=== PATIENT | female | born 2000 | race Caucasian/White ===

== ENCOUNTER 2025-07-09 13:30 | Emergency (ER) | payer BC ==
[~2025-07-09 13:30] MED LIST: Iopamidol-370 76% 500 ML MDV (1 ML CHARGE) ONE
[2025-07-09] MEDS ORDERED: Acetaminophen 500 MG TAB ONE (14:16)
[2025-07-09] MEDS ORDERED: HYDROcodone/Acetaminophen 5/325 mg Tablet ONE (14:19)
[2025-07-09] MEDS ORDERED: Ketorolac Tromethamine 30 MG (1 mL) VIAL ONE (14:57)
== END 2025-07-09 15:23 | disposition home or self-care (01) ==
LOC: ERS 13:30
DX: S42.002A Fracture of unspecified part of left clavicle, initial encounter for closed fracture (principal); V80.010A Animal-rider injured by fall from or being thrown from horse in noncollision accident, initial encounter
CPT/HCPCS: 70450; 71045; 71260; 72125; 74177; 93005; 96374; J1885; Q9967